=== PATIENT | female | born 1960 | race Caucasian/White ===

== ENCOUNTER 2019-05-12 13:42 | Emergency (ER) | payer BC ==
[~2019-05-12] VITALS: Ht 157.5 cm; Wt 85.5 kg
[2019-05-12 13:48] VITALS: Ht 157.5 cm; Wt 85.5 kg
[2019-05-12] MEDS ORDERED: LISI-471 PO (14:16)
[2019-05-12] MEDS ORDERED: HYDR25TA6 PO (14:17)
[2019-05-12] MEDS ORDERED: LOVA20TA PO (14:17)
[2019-05-12] MEDS ORDERED: NAPROXEN 500 MG TAB PO ONE (15:00)
--- NOTE | 2019-05-12 15:45 | ERD ---
ER Documentation Chief Complaint Chief Complaint PROGRESSIVELY WORSENING LEFT LEG PAIN HPI 59-year-old female presenting with worsening left calf pain that started about 1 week ago. There was no trauma associated with it. Her pain is been progressively worsening where now she is having some difficulty walking. The pain is located in the upper left calf area. No associated knee pain. Worse with walking and bending knee. No fevers or chills. No history of arthritis. No recent immobilization, surgeries, or history of blood clots. ROS All systems reviewed and are negative except as per history of present illness. Medications Home Meds Reported Medications Hydrochlorothiazide* (Hydrochlorothiazide*) 25 Mg Tab, 25 MG PO DAILY, #30 TAB 05/12/19 Lovastatin* (Lovastatin*) 20 Mg Tablet, 20 MG PO HS, TAB 05/12/19 Lisinopril* (Lisinopril*) 20 Mg Tablet, 20 MG PO DAILY, #30 TAB 05/12/19 Allergies Allergies: Coded Allergies: No Known Allergy (Unverified , 05/12/19) PMhx/Soc History of Surgery: Yes (EDUARD, FOOT SX) Anesthesia Reaction: No Hx Neurological Disorder: No Hx Respiratory Disorders: No Hx Cardiac Disorders: Yes (HTN, HYPERCHOLESTEROLEMIA) Hx Psychiatric Problems: No Hx Miscellaneous Medical Probl: No Hx Alcohol Use: Yes (OCC) Hx Substance Use: No Hx Tobacco Use: No Smoking Status: Never smoker FmHx Family History: No diabetes Physical Exam Vitals Vital Signs Date Temp Pulse Resp B/P (MAP) Pulse Ox O2 O2 Flow FiO2 Time Delivery Rate 05/12/19 98.0 78 16 155/80 99 Room Air 16:00 (105) 05/12/19 98.6 93 18 185/86 99 13:48 (119) Physical Exam Const: No acute distress Head: Atraumatic Neck: Full range of motion. No meningismus. Resp: No respiratory distress Cardio: Regular rate and rhythm, no murmurs. 2+ DP and PT pulses bilaterally. Skin: No petechiae or rashes Ext: No cyanosis, or edema. Tender to palpation of the upper left calf in the popliteal area. No cords. No popliteal mass. Positive Homans sign Neur: Awake and alert, strength and sensations intact in all 4 extremities Psych: Normal Mood and Affect Results 24 hrs Current Medications Medications Dose Sig/Imelda Start Time Status Last (Trade) Ordered Route PRN Stop Time Admin Dose Reason Admin Naproxen 500 mg ONCE ONCE 05/12/19 DC 05/12/19 (Naprosyn) PO 15:00 14:41 05/12/19 15:01 Procedures/MDM EMERGENT LABS AND DIAGNOSTIC STUDIES: Radiology Results as interpreted by Radiology below were reviewed by Joe Patterson MD: Venous ultrasound left lower extremity does not show evidence of DVT Initial Nursing notes reviewed. Previous Medical Records requested via the Electronic Health Record. EMERGENCY DEPARTMENT COURSE / MEDICAL DECISION MAKING: Patient is presenting with left calf pain of unclear etiology. She is neuro vascularly intact. Ultrasound was done to evaluate for possible DVT and was negative. She was treated with naproxen for her pain with significant relief. If her pain continues, I recommended she follow-up with her primary care doctor. Weightbearing as tolerated. At this point, I have a low suspicion for fracture or arterial insufficiency. No indication for any further work-up in the emergency setting. [id number] analgesics recommended for pain control. Patient's blood pressure was elevated (>120/80) but appears stable without evidence of hypertensive emergency or urgency. The patient was counseled about the risks of hypertension and urged to pursue outpatient monitoring and therapy within a week with their primary care physician. Departure Diagnosis: Primary Impression: Pain of left calf Condition: Stable Patient Instructions: Muscle Strain, Extremity Additional Instructions: The cause of your calf pain is unclear at this time. Follow-up with your primary care doctor if your pain does not resolve within the next few days. Return to the ER if you have any worsening symptoms. You may take Aleve or Advil for your pain as directed on the bottle. JD PATTERSON MD May 12, 2019 15:45
[2019-05-12 16:00] VITALS: BP 155/80; PULSE 78; RESP 16
== END 2019-05-12 16:01 | disposition home or self-care (01) ==
LOC: E/R 13:42
DX: M79.662 Pain in left lower leg (principal); I10 Essential (primary) hypertension
CPT/HCPCS: 93971